=== PATIENT | male | born 1985 | race Caucasian/White ===

== ENCOUNTER → 2018-01-02 | Outpatient (CLI) | payer OTHER | LOC: M RAD 07:26 | DX: R10.10 Upper abdominal pain, unspecified (principal) | CPT/HCPCS: J2805 ==

== ENCOUNTER 2024-08-30 20:24 | Emergency (ER) | payer BC, OTHER ==
[~2024-08-30] VITALS: Ht 177.8 cm; Wt 115.2 kg
[2024-08-30] MEDS: KETOROLAC 30 MG/ML 1ML VIAL IM ONE (23:38)
[2024-08-30] MEDS: diazePAM 5MG TABLET PO ONE (23:39)
[2024-08-31] MEDS: MORPHINE 4 MG/ML 1ML VIAL IV ONE (00:42)
[2024-08-31 00:47] LABS: BASO # 0.1 10^3/uL (0.0-0.2); EOS # 0.1 10^3/uL (0.0-0.5); EOS % 2.7 % (0.0-3.0); HEMATOCRIT 45.4 % (42.0-52.0); HEMOGLOBIN 16.5 g/dl (13.5-17.5); LYMPH # 0.7 10^3/uL (1.5-5.0); LYMPH % 14.7 % (24.0-44.0); MEAN CORPUSCULAR HEMOGLOBIN 33.5 pg (27.0-33.0); MEAN CORPUSCULAR HGB CONC 36.3 g/dl (32.0-36.5); MEAN CORPUSCULAR VOLUME 92.1 fl (80.0-96.0); MONO # 0.5 10^3/uL (0.0-0.8); MONO % 9.4 % (2.0-8.0); NEUTROPHILS # 3.5 10^3/uL (1.5-8.5); PLATELET COUNT, AUTOMATED 171 10^3/uL (150-450); RED BLOOD COUNT 4.93 10^6/uL (4.30-6.10); WHITE BLOOD COUNT 4.9 10^3/uL (4.0-10.0)
[2024-08-31 01:12] LABS: BLOOD UREA NITROGEN 12 MG/DL (9-23); CALCIUM LEVEL 8.9 MG/DL (8.5-10.1); CARBON DIOXIDE LEVEL 24 MMOL/L (20-31); CHLORIDE LEVEL 103 MMOL/L (98-107); CREATININE FOR GFR 0.92 MG/DL (0.70-1.30); GLOMERULAR FILTRATION RATE > 60.0 (>60); GLUCOSE, FASTING 89 MG/DL (60-100); POTASSIUM SERUM 4.5 MMOL/L (3.5-5.1); SODIUM LEVEL 136 MMOL/L (136-145)
[2024-08-31] MEDS ORDERED: MEDR4TAB PO (01:47)
[2024-08-31] MEDS ORDERED: NAPR-837 PO (01:47)
[2024-08-31] MEDS ORDERED: METH-1164 PO (01:47)
[2024-08-31] MEDS: hydrALAZINE 20MG/ML 1ML VIAL IV ONE ×2 (01:57→02:24)
[2024-08-31 02:31] VITALS: BP 181/84; TEMP 97.8; O2SAT 97
== END 2024-08-31 02:54 | disposition home or self-care (01) ==
LOC: M ED 20:24
DX: M54.32 Sciatica, left side (principal); Z79.1 Long term (current) use of non-steroidal anti-inflammatories (NSAID); Z79.899 Other long term (current) drug therapy
CPT/HCPCS: 72110; 80048; 85025; 93005; 96372; 96374; 96375; 96376; 99284; J0360; J1100; J1885